=== PATIENT | female | born 1975 | race Caucasian/White ===

== ENCOUNTER 2016-06-13 14:01 | Emergency (ER) | payer OTHER ==
--- NOTE | ~2016-06-13 | CR170 ---
[facility]. [facility] A Service of [facility] & [facility] RADIOLOGY TEXT RESULTS PATIENT: CATHY ACKERMAN LOCATION: SED : 77 UNIT #: [id number] AGE: [address]: Dorina Alamo APRN SEX: F ORDER DR: [id number] [address] [address] [id number] MR#: [id number] Acc #: [id number] NAME: CATHY ACKERMAN : 1975 SEX: F STUDY DATE/TIME: 06/13/2016 14:07 UNIT: SED ROOM: STUDY DESCRIPTION: CR Knee 2 Views Rt Attending Physician: Dorina Alamo A.P.R.N. Ordering Physician: Dorina Tam A.P.R.N. Primary Care Physician: Major Espinosa M.D. MEDICAL IMAGING REPORT This report is preliminary unless electronic signature is present. EXAM Right knee series, 06/13/2016. HISTORY Knee pain for years, 2-3 years. Posterior pain all the way to foot. No known injury. FINDINGS AP and lateral radiographs of the right knee are presented. No fracture or malalignment. Mild narrowing, medial joint space compartment. No acute-appearing soft tissue abnormality. No joint effusion. If it would assist in management, knee could be further evaluated with elective MRI, if the patient is a candidate. Dictated by... Juan Carlos Swan M.D. THIS IS AN ELECTRONICALLY VERIFIED REPORT Juan Carlos Swan M.D. at 06/14/2016 5:36 PM LEVON/nicol TD: 06/13/2016 17:19 JOB #: [id number] MEDICAL IMAGING REPORT Page 1 of 1
[~2016-06-13 14:01] MED LIST: ALBUTEROL HFA INH; AMOXICILLIN PO; AMOXICILLIN500 M1 PO; ANTIVERT PO; ASPIRIN81 M2 PO; AZITHROMYCIN250 MG PO; BACTRIM DS TABL1 TA1 PO; BACTRIM DS TABL1 TA2 PO; BENTYL20 M1 PO; BP MED; BP PILL; CIPRO PO; HYDROCHLOROTHIA25 MG PO; K-DUR20 ME2 PO; LISINOPRIL-HCTZ1 T20 PO; LOPRESSOR PO; MOUTHWASH180 ML PO; NO MEDICATIONS; PEN-VEE K PO; PREDNISONE PO; PYRIDIUM PO; ROBITUSSIN A-C S5 ML PO; SAFE WASH210 ML; SERTRALINE HCL25 M1 PO; TAMIFLU75 M1 PO; TYLENOL PM; VISTARIL PO; VOLTAREN75 MG PO; ZITHROMAX PO; ZITHROMAX1 G/PKT PO; ZOFRAN ODT4 MG PO; ZOFRANODT PO; ZOLOFT PO; [UNRECOGNIZED DRUG - OTHER]; [UNRECOGNIZED DRUG - REMARK]
== END 2016-06-13 16:06 | disposition home or self-care (01) ==
LOC: SED 14:01
DX: M25.561 Pain in right knee (principal); I10 Essential (primary) hypertension; F32.9 Major depressive disorder, single episode, unspecified; F41.9 Anxiety disorder, unspecified; Z90.49 Acquired absence of other specified parts of digestive tract; F17.210 Nicotine dependence, cigarettes, uncomplicated
CPT/HCPCS: 73560; 99283

== ENCOUNTER 2016-09-05 21:10 | Emergency (ER) | payer OTHER ==
[2016-09-05] MEDS ORDERED: MOBIC (21:25)
== END 2016-09-05 22:11 | disposition home or self-care (01) ==
LOC: SED 21:10
DX: K43.9 Ventral hernia without obstruction or gangrene (principal); I10 Essential (primary) hypertension; F17.200 Nicotine dependence, unspecified, uncomplicated; Z90.49 Acquired absence of other specified parts of digestive tract; Z79.899 Other long term (current) drug therapy
CPT/HCPCS: 99284